=== PATIENT | female | born 1995 | race American Indian/Alaskan Native ===

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

== ENCOUNTER 2017-05-23 19:19 | Emergency (ER) | payer MEDICAID ==
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
--- NOTE | 2017-05-24 07:22 | XRay Report ---
LEFT FOOT, 2 views: History: Left foot pain, left great toe pain. The bony architecture is intact. Bony alignment is normal. No soft tissue abnormalities are seen. The joint spaces appear preserved. IMPRESSION: Normal left foot.
[2017-05-24 07:34] VITALS: BP 118/82
== END 2017-05-24 02:30 | disposition home or self-care (01) ==
LOC: ED 19:19
DX: S90.122A Contusion of left lesser toe(s) without damage to nail, initial encounter (principal); Y08.89XA Assault by other specified means, initial encounter; Y93.9 Activity, unspecified; Y92.9 Unspecified place or not applicable; Y99.9 Unspecified external cause status
CPT/HCPCS: 81025

== ENCOUNTER 2017-12-28 17:49 | Emergency (ER) | payer MEDICAID ==
[2017-12-28 18:19] VITALS: BP 110/80
--- NOTE | 2017-12-28 19:38 | Emergency Department Report ---
ED General Adult HPI - General Chief complaint: Chest Pain Stated complaint: RIGHT RIB/CP Time Seen by Provider: 12/28/17 19:27 Source: patient Mode of arrival: Ambulatory Limitations: No Limitations - History of Present Illness Initial comments: 22-year-old -[place] female comes in complaining of right rib pain. Patient states she's had had pain for the last 2 years and the doctor's excuse thin they cannot find anything. Patient denies any past medical history she reports shortness of breathing times one month. She is currently taking no medication has not had any recent trauma. -: year(s) (2) Location: chest Severity scale (0 -10): 8 Quality: sharp Consistency: intermittent Improves with: none Worsens with: none - Related Data Previous Rx's Medication Instructions Recorded Last Taken Type Acetaminophen [Tylenol] 650 mg PO Q6HR PRN #20 tablet 09/15/16 Unknown Rx Azithromycin [Zithromax Z-HILLARY] 250 mg PO QDAY #6 tablet 09/15/16 Unknown Rx Naproxen 500 mg PO BID PRN #20 tablet 05/24/17 Unknown Rx Allergies Allergy/AdvReac Type Severity Reaction Status Date / Time Penicillins Allergy Unknown Verified 09/15/16 13:15 dairy Allergy Unknown Uncoded 09/15/16 13:15 ED Review of Systems ROS: Stated complaint: RIGHT RIB/CP Other details as noted in HPI Constitutional: denies: chills, fever Eyes: denies: eye pain, eye discharge, vision change ENT: denies: ear pain, throat pain Respiratory: shortness of breath (arms one month) Cardiovascular: chest pain (2 years) Endocrine: no symptoms reported Gastrointestinal: denies: abdominal pain, nausea, diarrhea Genitourinary: denies: urgency, dysuria, discharge Musculoskeletal: denies: back pain, joint swelling, arthralgia Skin: denies: rash, lesions Neurological: denies: headache, weakness, paresthesias Psychiatric: denies: anxiety, depression Hematological/Lymphatic: denies: easy bleeding, easy bruising ED Past Medical Hx - Past Medical History Previous Medical History?: No - Surgical History Past Surgical History?: No - Social History Smoking Status: Never Smoker Substance Use Type: None - Medications Home Medications: Home Medications Medication Instructions Recorded Confirmed Last Taken Type Acetaminophen [Tylenol] 650 mg PO Q6HR PRN #20 tablet 09/15/16 Unknown Rx Azithromycin [Zithromax Z-HILLARY] 250 mg PO QDAY #6 tablet 09/15/16 Unknown Rx Naproxen 500 mg PO BID PRN #20 tablet 05/24/17 Unknown Rx ED Physical Exam - General Limitations: No Limitations General appearance: alert, in no apparent distress, other (nontoxic, Texting on cell phone) - Eye Eye exam: Present: normal appearance - ENT ENT exam: Present: mucous membranes moist - Neck Neck exam: Present: normal inspection - Respiratory Respiratory exam: Present: normal lung sounds bilaterally. Absent: respiratory distress - Cardiovascular Cardiovascular Exam: Present: regular rate, normal rhythm. Absent: systolic murmur, diastolic murmur, rubs, gallop ED Course Vital Signs 12/28/17 18:15 Temperature 97.8 F Pulse Rate 79 Respiratory 16 Rate Blood Pressure 110/80 ED Medical Decision Making - Medical Decision Making Patient has been evaluated by this provider fast track. Discussed the patient she will be best followed up by primary care as this is appears to be a chronic issue. I will list several below for patient to make follow-up appointment with. Patient verbalized understanding. Critical care attestation.: If time is entered above; I have spent that time in minutes in the direct care of this critically ill patient, excluding procedure time. ED Disposition Clinical Impression: Rib pain on right side Disposition: DC-01 TO HOME OR SELFCARE Is pt being admited?: No Does the pt Need Aspirin: No Condition: Stable Instructions: Chest Pain (ED) Additional Instructions: Please follow up with primary care had listed one below. Referrals: [facility] [Provider Group] - 3-5 Days
== END 2017-12-28 19:45 | disposition home or self-care (01) ==
LOC: ED 17:49
DX: R07.81 Pleurodynia (principal); Z88.0 Allergy status to penicillin; Z91.011 Allergy to milk products
CPT/HCPCS: 99282